=== PATIENT | female | born 1985 | race Two or more races ===

== ENCOUNTER 2021-01-22 06:44 | Inpatient (IN) | payer OTHER ==
[~2021-01-22] VITALS: Ht 160 cm; Wt 70.3 kg
[2021-01-22] MEDS ORDERED: PRENATAL TABLE1 EAC1 PO (08:53)
[2021-01-22] MEDS ORDERED: SYNTHROID88 MCG PO (08:54)
[2021-01-24] MEDS ORDERED: NAPR500T14 PO (08:13)
== END 2021-01-24 15:39 | disposition home or self-care (01) | DRG 807 ==
LOC: LDR 06:44 → SURG-SUITE 06:44
PROVIDERS: ADMIT Obstetrics & Gynecology; ATTEND Obstetrics & Gynecology
PROC: 10E0XZZ Delivery of Products of Conception, External Approach (ICD-10-PCS; principal; 2021-01-22)
PROC: 0KQM0ZZ Repair Perineum Muscle, Open Approach (ICD-10-PCS; 2021-01-22)
PROC: 10907ZC Drainage of Amniotic Fluid, Therapeutic from Products of Conception, Via Natural or Artificial Opening (ICD-10-PCS; 2021-01-22)
PROC: 3E033VJ Introduction of Other Hormone into Peripheral Vein, Percutaneous Approach (ICD-10-PCS; 2021-01-22)
PROC: 4A1HXFZ Monitoring of Products of Conception, Cardiac Rhythm, External Approach (ICD-10-PCS; 2021-01-22)
DX: O70.1 Second degree perineal laceration during delivery (principal); O99.02 Anemia complicating childbirth; D64.9 Anemia, unspecified; Z37.0 Single live birth; Z3A.38 38 weeks gestation of pregnancy; Z20.822 Contact with and (suspected) exposure to COVID-19